=== PATIENT | female | born 1990 | race Caucasian/White ===

== ENCOUNTER 2021-03-20 22:40 | Emergency (ER) | payer OTHER ==
[2021-03-21 00:23] LABS: BUN/CREATININE RATIO 18 (0-10)
[2021-03-21 01:02] LABS: HEMOGLOBIN 13.1 gm/dl (12.3-15.3); RED BLOOD COUNT 4.34 M/UL (4.00-5.10); WHITE BLOOD COUNT 12.4 K/UL (4.5-11.0)
== END 2021-03-21 03:40 | disposition home or self-care (01) ==
LOC: ER1 22:40
PROVIDERS: Emergency Medicine
DX: R10.32 Left lower quadrant pain (principal); R10.12 Left upper quadrant pain
CPT/HCPCS: 76830; 80053; 81001; 83690; 84703; 85025; 87086; 99284

== ENCOUNTER 2021-03-31 21:29 | Outpatient (CLI) | payer OTHER | END 2021-03-31 22:43 | disposition left against medical advice (07) | LOC: GENOP 21:29 | DX: O47.1 False labor at or after 37 completed weeks of gestation (principal); O48.0 Post-term pregnancy; O99.283 Endocrine, nutritional and metabolic diseases complicating pregnancy, third trimester; E28.2 Polycystic ovarian syndrome; O34.13 Maternal care for benign tumor of corpus uteri, third trimester; Z3A.41 41 weeks gestation of pregnancy | CPT/HCPCS: 76815; 84703 ==